=== PATIENT | female | born 1990 | race Caucasian/White ===

== ENCOUNTER 2016-07-29 19:47 | Emergency (ER) | payer OTHER ==
[~2016-07-29] VITALS: Ht 162.6 cm; Wt 92.7 kg
[2016-07-29 20:45] VITALS: Ht 162.6 cm; Wt 92.7 kg
[2016-07-29] MEDS ORDERED: [UNRECOGNIZED DRUG - CODE] PO (23:27)
--- NOTE | 2016-07-29 23:28 | ERD ---
ER Documentation Chief Complaint Date/Time DATE: 07/29/16 TIME: 23:25 Chief Complaint Right SIDE HEADACHE OFF AND ON X1 WEEK. STARTED ON TOPAMAX. INEFFECTIVE HPI 26-year-old female presents to emergency department for complaints of right sided headache started one week ago, patient describes the pain as sharp, intermittent, 4/10 scale, the better after taking Aleve, patient is also taking Topamax and Tylenol home with only mild relief. Patient denies any trauma in the head. Patient denies any nausea or vomiting. Patient does complain of pain on and off swelling there are right orbital area, denies any pain at this time. Patient described the pain there as dull pain 4/and scale, accompanied with on and off floaters at times, describing the floaters as red and blue threads that she sees. Other than that, patient does not have any changes in vision. ROS All systems reviewed and are negative except as per history of present illness. Medications Home Meds Reported Medications Topiramate* (Topamax*) Unknown Strength Cap.sprink, PO BID, CAP 07/29/16 Allergies Allergies: Coded Allergies: No Known Allergy (Unverified , 07/29/16) PMhx/Soc Medical and Surgical Hx: pt denies Medical Hx, pt denies Surgical Hx History of Surgery: No Anesthesia Reaction: No Hx Neurological Disorder: No Hx Respiratory Disorders: No Hx Cardiac Disorders: No Hx Psychiatric Problems: No Hx Miscellaneous Medical Probl: No Hx Alcohol Use: No Hx Substance Use: No Hx Tobacco Use: No Smoking Status: Never smoker FmHx Family History: No coronary disease, No diabetes, No other Physical Exam Vitals Vital Signs Date Time Temp Pulse Resp B/P Pulse Ox O2 Delivery O2 Flow Rate FiO2 07/29/16 20:45 98.8 104 20 140/86 99 Physical Exam GENERAL: The patient is well developed and appropriate for usual state of health, in no apparent distress. CHEST: Clear to auscultation bilaterally. There are no rales, wheezes or rhonchi. HEART: Regular rate and rhythm. No murmurs, clicks, rubs or gallops. No S3 or S4. ABDOMEN: Soft, nontender and nondistended. Good bowel sounds. No rebound or guarding. No gross peritonitis. No gross organomegaly or masses. No Askew sign or McBurney point tenderness. BACK: No midline or flank tenderness. EXTREMITIES: Equal pulses bilaterally. There is no peripheral clubbing, cyanosis or edema. No focal swelling or erythema. Full range of motion. Grossly neurovascularly intact. NEURO: Alert and oriented. Cranial nerves 2-12 intact. Motor strength in all 4 extremities with 5/5 strength. Sensation grossly intact. Normal speech and gait. No Romberg sign. Negative pronator drift. SKIN: There is no apparent rash or petechia. The skin is warm and dry. HEMATOLOGIC AND LYMPHATIC: There is no evidence of excessive bruising or lymphedema. No gross cervical, axillary, or inguinal lymphadenopathy. Results 24 hrs PROCEDURE: Ultrasound soft tissue CLINICAL INDICATION: Floaters in visual field. TECHNIQUE: An ultrasound of both globes was performed utilizing covarrubias scale imaging. COMPARISON: None. FINDINGS: The bilateral anterior chambers, lenses, and vitreous bodies are normal in appearance. There is no evidence of retinal detachment. IMPRESSION: 1. Normal covarrubias-scale appearance of both globes. RPTAT: HTAR .Fidel Rae MD, MD Date Time Electronically viewed and signed by .Fidel Rae MD, MD on 07/30/2016 00:19 .R/ CC: MAXX CHARLES NP PROCEDURE: CT Brain without contrast. CLINICAL INDICATION: Headache. TECHNIQUE: A CT of the brain was performed utilizing axial sections from the skull base through the vertex without contrast. Multiplanar re-formations were generated. Images were reviewed on a high-resolution PACS workstation. CTDIvol: 43.05 mGy. DLP: 720.23 mGy-cm. One or more of the following dose reduction techniques were used: - Automated exposure control. - Adjustment of the mA and/or kV according to patient size. - Use of iterative reconstruction technique. COMPARISON: None available FINDINGS: There is no cerebral volume loss. No hydrocephalus is seen. There is no mass effect. No acute intracranial hemorrhage is identified. There is no extra-axial collection. Covarrubias-white matter differentiation is preserved. There is no significant mucosal disease in the paranasal sinuses. The visualized mastoid air cells are clear. The ossesous structures are unremarkable. The extracranial soft tissues are unremarkable. IMPRESSION: 1. No acute intracranial pathology. RPTAT: HTAR .Fidel Rae MD, Date Time Electronically viewed and signed by .Fidel Rae MD, on 07/30/2016 00:09 .R/ CC: MAXX CHARLES NP Procedures/MDM Medical Decision Making: Patient symptoms are nonspecific at this time, possible tension headache and a migraine. No retinal detachment noted. Visual acuity is normal. Evaluation by specialists is appropriate at this time. Patient was also advised to see neurology specialist for further evaluation of the headache. There is low suspicion for neurological emergencies at this time since patients neurologic exam is normal. Patient did not have any altered level consciousness, vomiting, changes in balance or memory after incident. Patients CT scan of the head does not show any neurological emergencies at this time. Patient was given a procedure for Fioricet, is advised to follow with primary doctor in 1-2 days, see neurology specialist, clinical informatics specialist for further evaluation of symptoms. Patient denies return to emergency department for any worsening symptoms. Departure Diagnosis: Primary Impression: Headache Headache type: unspecified Headache chronicity pattern: acute headache Intractability: not intractable Qualified Code: R51 - Acute nonintractable headache, unspecified headache type Additional Impression: Visual disturbance Condition: Stable Patient Instructions: Blurred Vision, Self-Care for Headaches Additional Instructions: Patient was given a procedure for Fioricet, is advised to follow with primary doctor in 1-2 days, see neurology specialist, clinical informatics specialist for further evaluation of symptoms. Patient denies return to emergency department for any worsening symptoms. MAXX CHARLES NP July 29, 2016 23:28
--- NOTE | 2016-07-30 00:10 | RADRPT ---
PROCEDURE: CT Brain without contrast. CLINICAL INDICATION: Headache. TECHNIQUE: A CT of the brain was performed utilizing axial sections from the skull base through th e vertex without contrast. Multiplanar re-formations were generated. Images were reviewed on a high- resolution PACS workstation. CTDIvol: 43.05 mGy. DLP: 720.23 mGy-cm. One or more of the following dose reduction techniques were used: - Automated exposure control. - Adjustment of the mA and/or kV according to patient size. - Use of iterative reconstruction technique. COMPARISON: None available FINDINGS: There is no cerebral volume loss. No hydrocephalus is seen. There is no mass effect. No acute intrac ranial hemorrhage is identified. There is no extra-axial collection. Covarrubias-white matter differentiati on is preserved. There is no significant mucosal disease in the paranasal sinuses. The visualized mastoid air cells are clear. The ossesous structures are unremarkable. The extracranial soft tissues are unremarkable. IMPRESSION: 1. No acute intracranial pathology. RPTAT: HTAR .Fidel Rae MD, Date Time Electronically viewed and signed by .Fidel Rae MD, on 07/30/2016 00:09 .R/
--- NOTE | 2016-07-30 00:20 | RADRPT ---
PROCEDURE: Ultrasound soft tissue CLINICAL INDICATION: Floaters in visual field. TECHNIQUE: An ultrasound of both globes was performed utilizing grande scale imaging. COMPARISON: None. FINDINGS: The bilateral anterior chambers, lenses, and vitreous bodies are normal in appearance. There is no evidence of retinal detachment. IMPRESSION: 1. Normal grande-scale appearance of both globes. RPTAT: HTAR .Fidel Rae MD, MD Date Time Electronically viewed and signed by .Fidel Rae MD, on 07/30/2016 00:19 .R/
[2016-07-30] MEDS ORDERED: FIORICET PO (00:32)
[2016-07-30 00:46] VITALS: BP 134/79; PULSE 86; RESP 16
== END 2016-07-30 00:50 | disposition home or self-care (01) ==
LOC: FTE 19:47
DX: R51 Headache (principal); H53.9 Unspecified visual disturbance
CPT/HCPCS: 70450; 76536